=== PATIENT | female | born 1950 | race Caucasian/White ===

== ENCOUNTER → 2018-04-29 | Outpatient (CLI) | payer MEDICARE, OTHER ==
[~2018-04-29] MED LIST: CEFD300C3 PO; ENAL20TA PO; GLIP10TA13 PO; METF500T5 PO; NEBI5TAB8 PO
--- NOTE | 2018-04-29 11:56 | Diagnostic Imaging Report ---
Indication: Postmenopausal. No prior studies available for comparison. Bone mineral analysis of the lumbar spine and both hips was performed. Bone mineral density lumbar spine L2-L4 0.987 with T score -1.8. Bone mineral density left femoral neck 0.827 T score -1.5. Bone mineral density right femoral neck 0.842 T score -1.4. Impression: Osteopenia of the lumbar spine and bilateral femoral necks. Dictated by: Dictated on workstation # [id number]
--- NOTE | 2018-04-29 13:46 | Diagnostic Imaging Report ---
INDICATION: Routine screening. Comparison is made with prior mammograms from 04/24/2015 and 10/20/2011. 2-D and 3-D bilateral screening mammography was performed with CAD. The current study was also evaluated with a Computer Aided Detection (CAD) system. FINDINGS: Scattered fibroglandular densities are identified bilaterally. Nodular density in medial right breast remains stable. Benign calcifications are again noted bilaterally. No spiculated mass or malignant-appearing microcalcifications are seen. The axillae are unremarkable. IMPRESSION: No mammographic features suspicious for malignancy are identified. ACR BI-RADS Category 2: Benign findings. Result letter will be mailed to the patient. Note: At least 10% of breast cancer is not imaged by mammography. Dictated by: Dictated on workstation # [id number]
== END ==
LOC: RAD 10:05
PROVIDERS: ATTEND Nurse Practitioner
DX: Z12.31 Encounter for screening mammogram for malignant neoplasm of breast (principal); M85.88 Other specified disorders of bone density and structure, other site; Z78.0 Asymptomatic menopausal state
CPT/HCPCS: 77067; 77080

== ENCOUNTER → 2019-05-02 | Outpatient (CLI) | payer MEDICARE, OTHER ==
[~2019-05-02] MED LIST changes: +METF-397 PO; -METF500T5 PO
--- NOTE | 2019-05-02 14:14 | Diagnostic Imaging Report ---
INDICATION: Routine screening. COMPARISON: 04/29/2018 and 04/24/2015. TECHNIQUE: 2D and 3D bilateral screening mammography was performed with CAD. FINDINGS: Scattered fibroglandular densities are identified bilaterally. There are benign calcifications. The nodular density in the medial right breast is stable. There is a nodular density in the lateral right breast on the CC view at mid depth appearing more prominent than on the prior exams. Additional views are recommended. The axillae are unremarkable. IMPRESSION: There is a nodular density in the lateral right breast at mid depth. Additional views including spot compression and rolled CC views as well as mediolateral view are recommended. ACR BI-RADS Category 0: Incomplete. (Needs additional imaging evaluation). Result letter will be mailed to the patient. Note: At least 10% of breast cancer is not imaged by mammography. Dictated by: Dictated on workstation # [id number]
== END ==
LOC: RAD 10:37
PROVIDERS: ATTEND Nurse Practitioner
DX: Z12.31 Encounter for screening mammogram for malignant neoplasm of breast (principal)
CPT/HCPCS: 77067

== ENCOUNTER → 2019-05-11 | Outpatient (CLI) | payer MEDICARE, OTHER ==
--- NOTE | 2019-05-11 10:21 | Diagnostic Imaging Report ---
INDICATION: Abnormal screening mammogram. COMPARISON: 04/29/2018, 04/24/2015, and 10/20/2011. TECHNIQUE: Spot compression views, rolled views, and a true lateral view of the right breast were obtained. The current study was evaluated with a Computer Aided Detection (CAD) system. FINDINGS: The previously described density appears to be superimposed fibroglandular tissue. There is no discrete mass, spiculated lesion, or suspicious calcification identified. The skin, nipples, and axillae are unremarkable. IMPRESSION: Benign findings. ACR BI-RADS Category 2: Benign findings. Result letter will be mailed to the patient. Note: At least 10% of breast cancer is not imaged by mammography. Dictated by: Dictated on workstation # [id number]
== END ==
LOC: RAD 08:45
PROVIDERS: ATTEND Nurse Practitioner
DX: R92.2 Inconclusive mammogram (principal)

== ENCOUNTER → 2020-05-08 | Outpatient (CLI) | payer MEDICARE, OTHER ==
--- NOTE | 2020-05-08 14:43 | Diagnostic Imaging Report ---
INDICATION: Postmenopausal state. COMPARISON: April 29, 2018. FINDINGS: AP Spine L1-L4: [BMD (g/cm2): 1.047] [T-Score: -1.3] [Z-Score: -0.8] [BMD Previous: 0.987] [BMD % Change: 6.1] LT Hip Neck: [BMD (g/cm2): 0.815] [T-Score: -1.6] [Z-Score: -0.6] LT Hip Total: [BMD (g/cm2):0.911] [T-Score:-0.8] [Z-Score: -0.1] [BMD Previous: 0.919] [BMD % Change: -0.9] RT Hip Neck: [BMD (g/cm2):0.837] [T-Score:-1.4] [Z-Score:-0.5] RT Hip Total: [BMD (g/cm2):0.959] [T-score:-0.4] [Z-Score:0.3] [BMD Previous:0.957] [BMD % Change:0.2] *Indicates significant change from prior examination based on 95% confidence level. World Health Organization criteria for BMD interpretation classify patients as Normal (T-score at or above -1.0), Osteopenic (T-score between -1.0 and -2.5) or Osteoporotic (T-score at or below -2.5). LIMITATIONS AND MODIFICATION: None. FRACTURE RISK (FRAX SCORE): The ten year probability of (%): Major Osteoporotic Fracture: [8.3] Hip Fracture: [1.3] IMPRESSION: 1. Osteopenia (Low bone mass). 2. No significant change in bone mineral density since prior examination. 3. See below National Osteoporosis Foundation guidelines on when to potentially initiate pharmacologic therapy. Based on the National Osteoporosis Foundation Guidelines, pharmacologic treatment should be initiated in any of the following, unless clinical conditions suggest otherwise: * Any patient with prior fragility fracture of the hip or vertebrae. A spine fracture indicates 5X risk for subsequent spine fracture and 2X risk for subsequent hip fracture. * Osteoporosis (T-score <-2.5). * Postmenopausal women and men age 50 and older with low bone mass/osteopenia (T-score between -1.0 and -2.5) by DXA and 10-year major osteoporotic fracture greater than 20% or a 10-year probability of hip fracture greater than 3%. These fracture risks are supplied above in the FRAX score, if applicable. * Clinician judgement and/or patient preferences may indicate treatment for people with 10-year fracture probabilities above or below these levels. Dictated by: Dictated on workstation # [id number]
--- NOTE | 2020-05-08 17:00 | Diagnostic Imaging Report ---
INDICATION: Routine screening. COMPARISON: 05/02/2019 and 04/29/2018. TECHNIQUE: 2D and 3D bilateral screening mammography was performed with CAD. FINDINGS: Scattered fibroglandular densities are identified bilaterally. The parenchymal pattern is stable. There are scattered benign calcifications. No dominant mass or malignant appearing microcalcifications are seen. The axillae are unremarkable. IMPRESSION: No mammographic features suspicious for malignancy are identified. ACR BI-RADS Category 2: Benign findings. Result letter will be mailed to the patient. Note: At least 10% of breast cancer is not imaged by mammography. Dictated by: Dictated on workstation # [id number]
== END ==
LOC: RAD 12:59
PROVIDERS: ATTEND Nurse Practitioner
DX: Z12.31 Encounter for screening mammogram for malignant neoplasm of breast (principal); N95.9 Unspecified menopausal and perimenopausal disorder; M85.89 Other specified disorders of bone density and structure, multiple sites; Z78.0 Asymptomatic menopausal state
CPT/HCPCS: 77063; 77067; 77080

== ENCOUNTER 2020-05-26 14:33 | Emergency (ER) | payer OTHER, MEDICARE ==
[~2020-05-26] VITALS: Ht 167.6 cm; Wt 86.2 kg
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
[2020-05-26] MEDS ORDERED: dexAMETHasone 6 MG TAB (DECADRON) ONE (15:26)
[2020-05-26] MEDS ORDERED: RT-ALBUTEROL INHALER HFA (VENTOLIN HFA) 18 GM IH ONE (15:26)
[2020-05-26] MEDS ORDERED: LACTATED RINGERS 0 ML IV ONE (15:26)
[2020-05-26 15:50] VITALS: BP 147/70
== END 2020-05-26 15:50 | disposition home or self-care (01) ==
LOC: EDUNIT# 14:33 → ER 14:34
DX: S20.211A Contusion of right front wall of thorax, initial encounter (principal); S60.221A Contusion of right hand, initial encounter; S90.01XA Contusion of right ankle, initial encounter; S10.81XA Abrasion of other specified part of neck, initial encounter; S80.211A Abrasion, right knee, initial encounter; E11.9 Type 2 diabetes mellitus without complications; I10 Essential (primary) hypertension; Z87.891 Personal history of nicotine dependence; Z79.84 Long term (current) use of oral hypoglycemic drugs; Z88.0 Allergy status to penicillin; Z88.2 Allergy status to sulfonamides; V89.2XXA Person injured in unspecified motor-vehicle accident, traffic, initial encounter
CPT/HCPCS: 71101

== ENCOUNTER → 2022-06-03 | Outpatient (CLI) | payer MEDICARE, OTHER ==
[~2022-06-03] MED LIST changes: -ENAL20TA PO; +ENAL20TA16 PO
--- NOTE | 2022-06-03 12:45 | Diagnostic Imaging Report ---
INDICATION: Routine screening. COMPARISON: 05/08/2020 and 05/02/2019. TECHNIQUE: 2D and 3D bilateral screening mammography was performed with CAD. FINDINGS: Both breasts are heterogeneously dense, limiting the sensitivity of mammography. There are benign calcifications present. No mass or malignant-appearing microcalcifications are seen. The axillae are unremarkable. IMPRESSION: No mammographic features suspicious for malignancy are identified. ACR BI-RADS Category 2: Benign findings. Result letter will be mailed to the patient. Note: At least 10% of breast cancer is not imaged by mammography. Dictated by: Dictated on workstation # [id number]
--- NOTE | 2022-06-03 13:07 | Diagnostic Imaging Report ---
INDICATION: 71-year-old asymptomatic postmenopausal female COMPARISON: 05/08/2020 FINDINGS: AP Spine L1-L4: [BMD (g/cm2): 1.111] [T-Score: -0.7] [Z-Score: 0.0] [BMD Previous: 1.047] [BMD % Change: 6.1*] LT Hip Neck: [BMD (g/cm2): 0.819] [T-Score: -1.6] [Z-Score: -0.4] LT Hip Total: [BMD (g/cm2):0.906] [T-Score:-0.8] [Z-Score: 0.1] [BMD Previous: 0.911] [BMD % Change: -0.5] RT Hip Neck: [BMD (g/cm2):0.811] [T-Score:-1.6] [Z-Score:-0.4] RT Hip Total: [BMD (g/cm2):0.917] [T-score:-0.7] [Z-Score:0.2] [BMD Previous:0.959] [BMD % Change:-4.4] *Indicates significant change from prior examination based on 95% confidence level. World Health Organization criteria for BMD interpretation classify patients as Normal (T-score at or above -1.0), Osteopenic (T-score between -1.0 and -2.5) or Osteoporotic (T-score at or below -2.5). LIMITATIONS AND MODIFICATION: Increase in bone mineral density of the lumbar spine may be falsely elevated due to degenerative sclerotic changes. FRACTURE RISK (FRAX SCORE): The ten year probability of (%): Major Osteoporotic Fracture: [NA] Hip Fracture: [NA] IMPRESSION: 1. Normal bone mineral density. 2. No significant change in bone mineral density since prior examination. 3. See below National Osteoporosis Foundation guidelines on when to potentially initiate pharmacologic therapy. Based on the National Osteoporosis Foundation Guidelines, pharmacologic treatment should be initiated in any of the following, unless clinical conditions suggest otherwise: * Any patient with prior fragility fracture of the hip or vertebrae. A spine fracture indicates 5X risk for subsequent spine fracture and 2X risk for subsequent hip fracture. * Osteoporosis (T-score <-2.5). * Postmenopausal women and men age 50 and older with low bone mass/osteopenia (T-score between -1.0 and -2.5) by DXA and 10-year major osteoporotic fracture greater than 20% or a 10-year probability of hip fracture greater than 3%. These fracture risks are supplied above in the FRAX score, if applicable. * Clinician judgement and/or patient preferences may indicate treatment for people with 10-year fracture probabilities above or below these levels. Dictated by: Dictated on workstation # [id number]
== END ==
LOC: RAD 10:00
PROVIDERS: ATTEND Registered Nurse
DX: Z12.31 Encounter for screening mammogram for malignant neoplasm of breast (principal); Z78.0 Asymptomatic menopausal state
CPT/HCPCS: 77063; 77067; 77080

== ENCOUNTER 2023-01-12 18:34 | Emergency (ER) | payer MEDICARE, OTHER ==
[~2023-01-12] VITALS: Ht 165 cm; Wt 100.0 kg
[2023-01-12 19:08] VITALS: BP 158/74
--- NOTE | 2023-01-12 19:54 | ED Lower Extremity ---
General Chief Complaint: Laceration Stated Complaint: LEFT LEG LAC Nursing Triage Note: Pt presents with c/o laceration to outside of L leg. She states she was putting trash into a bin and something sharp in the trashbag cut her leg. Source: patient Exam Limitations: no limitations History of Present Illness Date Seen by Provider: January 12, 2023 Time Seen by Provider: 19:45 Initial Comments 72-year-old female presents to the ED with a laceration to the left lower leg. States that she was lifting a trash bag that was too heavy, S1 and a piece of glass in the trash bag cut her leg. She states her last tetanus was greater than 5 years ago. Past medical history includes diabetes and hypertension. Currently takes glipizide, metformin, and benazepril. Allergies and Home Medications Allergies Coded Allergies: nickel (Unverified Allergy, Mild, 02/25/09) Penicillins (Verified Allergy, Unknown, 01/01/16) Sulfa (Sulfonamide Antibiotics) (Verified Allergy, Unknown, 01/01/16) Uncoded Allergies: METAL (Allergy, Mild, 02/25/09) Patient Home Medication List Home Medication List Reviewed: Yes Cefdinir (Cefdinir) 300 Mg Capsule, 300 MG PO BID Prescribed by: LARA OCDY on 01/01/16 0404 Enalapril Maleate (Enalapril Maleate) 20 Mg Tablet, 20 MG PO DAILY, (Reported) Entered as Reported by: MOO STOUT on 01/01/16251 Glipizide (Glipizide) 10 Mg Tablet, 10 MG PO DAILY, (Reported) Entered as Reported by: MOO STOUT on 01/01/16251 Metformin HCl (Metformin HCl) 500 Mg Tablet, 500 MG PO BID, (Reported) Entered as Reported by: MOO STOUT on 01/01/16251 Nebivolol HCl (Bystolic) 5 Mg Tablet, 5 MG PO DAILY, (Reported) Entered as Reported by: MOO STOUT on 01/01/16251 Review of Systems Constitutional: no symptoms reported Skin: other (Laceration) Past Vcuuygc-Hnioli-Wxprqw Hx Seasonal Allergies Seasonal Allergies: No Past Medical History Surgeries: Yes (DENTAL) Eye Surgery Respiratory: No Cardiac: Yes Hypertension Neurological: No Genitourinary: Yes UTI-Chronic Gastrointestinal: Yes Hemorrhoids Musculoskeletal: Yes (SPINAL STENOSIS) Endocrine: Yes Diabetes, Non-Insulin dep Cataract Loss of Vision: Denies Hearing Impairment: Denies Cancer: No Psychosocial: No Integumentary: No Blood Disorders: No Family Medical History No Pertinent Family Hx Physical Exam Vital Signs Vital Signs - First Documented 01/12/23 19:08 Temp 36.7 Pulse 48 Resp 16 B/P (MAP) 158/74 (102) Capillary Refill : Less Than 3 Seconds Height, Weight, BMI Height: 5'6" Weight: 250lbs. oz. 113.463027ya; 36.00 BMI Method:Stated General Appearance: WD/WN, no apparent distress Neck: supple, normal inspection Cardiovascular: regular rate, rhythm Respiratory: lungs clear, normal breath sounds, no respiratory distress, no accessory muscle use Legs: left leg other (Laceration) Neurologic/Psychiatric: alert, normal mood/affect Skin: normal color, warm/dry Progress/Results/Core Measures Results/Orders My Orders Orders - BARBIE FREY CIVIL [employer]ORATORY TECHNICIAN Dipht,Pertuss(Acell),Tet Adult (Boostrix (01/12/23 20:30) Vital Signs/I&O 01/12/23 19:08 Temp 36.7 Pulse 48 Resp 16 B/P (MAP) 158/74 (102) Blood Pressure Mean: 102 Progress Progress Note : Time: 19:53 Progress Note Patient seen and evaluated, resting comfortably in recliner, no acute distress. Laceration will need repaired. 2036 laceration repaired, see procedure note. Tetanus updated. Discharge i nstructions and return precautions provided. Departure Impression Primary Impression: Laceration Disposition: 01 HOME, SELF-CARE Condition: Stable Departure-Patient Inst. Decision time for Depature: 20:38 Referrals: LINCOLN BRICEÑO MD (PCP/Family) Primary Care Physician Patient Instructions: Laceration Repair With Stitches (DC) Add. Discharge Instructions: Keep leg clean and dry, you may shower and let water wash over it, do not scrub too hard or soak your leg. Monitor for signs of infection including swelling, redness, discolored odorous drainage. Return for signs of infection, or any other new, concerning, or worsening symptoms. Return in 7 to 10 days to have the sutures removed, or see your primary care provider. All discharge instructions reviewed with patient and/or family. Voiced understanding. BARBIE FREY APRN January 12, 2023 19:54
[2023-01-12] MEDS ORDERED: TETANUS,DIPTH,PERTUSS P/F (BOOSTRIX) 0.5 ML VIAL IM ONE (20:30)
== END 2023-01-12 20:43 | disposition home or self-care (01) ==
LOC: EDUNIT# 18:34 → ER 18:36
DX: S81.812A Laceration without foreign body, left lower leg, initial encounter (principal); E11.9 Type 2 diabetes mellitus without complications; I10 Essential (primary) hypertension; Z79.84 Long term (current) use of oral hypoglycemic drugs; Z79.899 Other long term (current) drug therapy; Z23 Encounter for immunization; W25.XXXA Contact with sharp glass, initial encounter
CPT/HCPCS: 90715

== ENCOUNTER 2023-01-21 15:06 | Emergency (ER) | payer MEDICARE, OTHER ==
[~2023-01-21] VITALS: Ht 165 cm; Wt 99.0 kg
[~2023-01-21 15:06] MED LIST changes: +ENAL-70 PO; -ENAL20TA16 PO
[2023-01-21 15:20] VITALS: BP 151/82
--- NOTE | 2023-01-21 15:46 | ED General ---
General Chief Complaint: General Problems/Pain Stated Complaint: 10 STITCHES ON LT LEG TO BE REMOVED|WOUND RECHECK Nursing Triage Note: ARRIVED VIA AMB TO HAVE STICHES OUT OF RIGHT LEG. STATES TWO DAYS AFTER HER TETANUS SHE STARTED RUNNING A FEVER, CHILLS, AND BODY ACHES. AREA AROUND SUTURE SITE SLIGHTLY RED. Source of Information: Patient Exam Limitations: No Limitations History of Present Illness Date Seen by Provider: January 21, 2023 Time Seen by Provider: 15:30 Initial Comments 72-year-old female presents to the ED for suture removal. She had sutures placed on 01/12/2023. She also had a tetanus vaccine that day. She is concerned that she had a reaction to the tetanus shot. She reports that the next day she felt swollen lymph nodes in the axilla near the injection site, the day after that she started having chills and fever as well as headache. She reports she had 1 day of runny nose and cough, states that has improved. She reports she currently has a sinus headache and mild sore throat. She reports in general that all symptoms have improved. She states she took a home COVID test that was negative. Allergies and Home Medications Allergies Coded Allergies: nickel (Unverified Allergy, Mild, 02/25/09) Penicillins (Verified Allergy, Unknown, 01/01/16) Sulfa (Sulfonamide Antibiotics) (Verified Allergy, Unknown, 01/01/16) Uncoded Allergies: METAL (Allergy, Mild, 02/25/09) Patient Home Medication List Home Medication List Reviewed: Yes Cefdinir (Cefdinir) 300 Mg Capsule, 300 MG PO BID Prescribed by: LARA CODY on 01/01/16 0404 Enalapril Maleate (Enalapril Maleate) 20 Mg Tablet, 20 MG PO DAILY, (Reported) Entered as Reported by: MOO STOUT on 01/01/16 025 Glipizide (Glipizide) 10 Mg Tablet, 10 MG PO DAILY, (Reported) Entered as Reported by: MOO STOUT on 01/01/16 025 Metformin HCl (Metformin HCl) 500 Mg Tablet, 500 MG PO BID, (Reported) Entered as Reported by: MOO STOUT on 01/01/16 025 Nebivolol HCl (Bystolic) 5 Mg Tablet, 5 MG PO DAILY, (Reported) Entered as Reported by: MOO STOUT on 01/01/16 0252 Review of Systems Review of Systems Constitutional: see HPI Past Dgqgtqz-Mtmrry-Riroqo Hx Patient Social History Tobacco Use?: No Substance use?: No Alcohol Use?: No Alcohol Frequency: Rarely Seasonal Allergies Seasonal Allergies: No Past Medical History Surgeries: Yes (DENTAL) Eye Surgery Respiratory: No Cardiac: Yes Hypertension Neurological: No Genitourinary: Yes UTI-Chronic Gastrointestinal: Yes Hemorrhoids Musculoskeletal: Yes (SPINAL STENOSIS) Endocrine: Yes Diabetes, Non-Insulin dep Cataract Loss of Vision: Denies Hearing Impairment: Denies Cancer: No Psychosocial: No Integumentary: No Blood Disorders: No Family Medical History No Pertinent Family Hx Physical Exam Vital Signs Vital Signs - First Documented 01/21/23 15:20 Temp 36.9 Pulse 84 Resp 16 B/P (MAP) 151/82 (105) Pulse Ox 93 O2 Delivery Room Air Capillary Refill : Less Than 3 Seconds Height, Weight, BMI Height: 5'6" Weight: 250lbs. oz. 113.228544nv; 36.00 BMI Method:Stated General Appearance: No Apparent Distress, WD/WN HEENT: Pharynx Normal, TM Abnormal (L) (Dull), TM Abnormal (R) (Dull) Neck: Non Tender, Supple Respiratory: Lungs Clear, Normal Breath Sounds, No Accessory Muscle Use, No Respiratory Distress Extremity: Normal Inspection, Normal Range of Motion Neurologic/Psychiatric: Alert, Normal Mood/Affect Skin: Normal Color, Warm/Dry, Other (Intact sutures, mild erythema around laceration, no concern of infection) Procedures/Interventions Suture Size: 3-0 Progress/Results/Core Measures Suspected Sepsis SIRS Temperature: Pulse: 84 Respiratory Rate: 16 Blood Pressure 151 /82 Mean: 105 Results/Orders Vital Signs/I&O 01/21/23 15:20 Temp 36.9 Pulse 84 Resp 16 B/P (MAP) 151/82 (105) Pulse Ox 93 O2 Delivery Room Air Capillary Refill : Less Than 3 Seconds Blood Pressure Mean: 105 Progress Note : Progress Note Patient seen and evaluated, resting comfortably in bed, no acute distress. Symptoms could be related to adverse reaction to tetanus vaccine. Patient also may possibly have a sinus infection. Since this is day 9, and symptoms are improving, I will not treat with antibiotic at this time. Patient instructed to follow-up with primary care provider if symptoms continue or get worse past 10 days. Nursing staff will remove sutures. Mild erythema around laceration, no concern for infection. Discharge instructions and return precautions provided. Departure Impression Primary Impression: Encounter for evaluation of wound Additional Impression: Viral sinusitis Disposition: HOME, SELF-CARE Condition: Stable Departure-Patient Inst. Decision time for Depature: 15:52 Referrals: LINCOLN BRICEÑO MD (PCP/Family) Primary Care Physician Patient Instructions: Sinusitis, Adult (DC) Add. Discharge Instructions: Your symptoms could be related to the tetanus injection, or it could also be a viral sinus infection. If your symptoms continue past 10 days, or become worse, you may see your primary care provider to be started on antibiotic. At this time, since your symptoms are improving, you do not need an antibiotic. Return for any new, concerning, or worsening symptoms. All discharge instructions reviewed with patient and/or family. Voiced understanding. BARBIE FREY APRN January 21, 2023 15:46
== END 2023-01-21 16:02 | disposition home or self-care (01) ==
LOC: EDUNIT# 15:06 → ER 15:09
DX: S81.811D Laceration without foreign body, right lower leg, subsequent encounter (principal); J32.9 Chronic sinusitis, unspecified; B97.89 Other viral agents as the cause of diseases classified elsewhere; X58.XXXD Exposure to other specified factors, subsequent encounter
CPT/HCPCS: 99282

== ENCOUNTER 2023-04-13 09:53 | Emergency (ER) | payer MEDICARE, OTHER ==
[~2023-04-13] VITALS: Ht 165.1 cm; Wt 90.7 kg
--- NOTE | 2023-04-13 10:23 | ED Fall/Injury ---
General Chief Complaint: Back Problems Stated Complaint: LOWER BACK PAIN | FALL 1 WEEK AGO Nursing Triage Note: PT TO ROOM 07 [facility] W/C WITH C/O LEFT LOWER BACK AND LEFT HIP PAIN X1 WEEK. PT REPORTS TRIPPING AND FALLING LAST THURSDAY AND HAS HAD PAIN SINCE. PT REPORTS HITTING HER FACE DURING THE FALL. PT REPORTS TAKING IBUPROFEN [employer]IST. Source: patient Exam Limitations: no limitations (GABINO RODGERS MD) History of Present Illness Date Seen by Provider: Apr 13, 2023 Initial Comments No bowel or bladder dysfunction, LE weakness, or saddle paresthesias were described. She is not anticoagulated. Dr. Krystal Briceño is her PCP. She saw Dr. Gould in [place] for neurosurgical consultation many years ago. Remains ambulatory but walking is slow and difficult due to pain. (GABINO RODGERS MD) Time Seen by Provider: 10:05 Initial Comments This is a 72 year old female with a history of lumbar spinal stenosis who presents to the ED today with complaints of low back pain and left hip pain. Last Thursday, Patient states that her foot got caught on the edge of a sidewalk and fell face forward onto the ground. The patient states that she did hit her head, but did not have LOC. States that she was wearing glasses and those cut her nose. At the time of the fall, the patient did not seek medical care. Admits that most of her pain now is left sided low back and hip. Describes the pain as sharp and rates it as an 8-9 on the pain scale. States that she has only taken ibuprofen for the pain and the last dose was prior to arrival. Admits that it has been hard for her to walk because of the pain and she has to move very slow, which is not normal for her. Patient states that when she tries to take a deep breath the muscles in her low back tense up. The pain radiates from the left sided low back into the groin. Patient admits to a daily headache since her fall. Patient is not anticoagulated. Patient denies numbness or weakness in her legs, dizziness, or vision changes. (GOPI KLINE) Allergies and Home Medications Allergies Coded Allergies: nickel (Unverified Allergy, Mild, 02/25/09) Penicillins (Verified Allergy, Unknown, 01/01/16) Sulfa (Sulfonamide Antibiotics) (Verified Allergy, Unknown, 01/01/16) Uncoded Allergies: METAL (Allergy, Mild, 02/25/09) Patient Home Medication List Home Medication List Reviewed: Yes (GABINO RODGERS MD) Cefdinir (Cefdinir) 300 Mg Capsule, 300 MG PO BID Prescribed by: LARA CODY on 01/01/16 0404 Enalapril Maleate (Enalapril Maleate) 20 Mg Tablet, 20 MG PO DAILY, (Reported) Entered as Reported by: MOO STOUT on 01/01/16 025 Gabapentin (Neurontin) 300 Mg Capsule, 300 MG PO Q8H PRN for PAIN-BREAKTHROUGH Prescribed by: GABINO SCHULZ on 04/13/23 1250 Glipizide (Glipizide) 10 Mg Tablet, 10 MG PO DAILY, (Reported) Entered as Reported by: MOO STOUT on 01/01/16 025 Metformin HCl (Metformin HCl) 500 Mg Tablet, 500 MG PO BID, (Reported) Entered as Reported by: MOO STOUT on 01/01/16 0252 Nebivolol HCl (Bystolic) 5 Mg Tablet, 5 MG PO DAILY, (Reported) Entered as Reported by: MOO STOUT on 01/01/16 025 Tramadol HCl (Tramadol HCl) 50 Mg Tablet, 50 MG PO Q6H PRN for PAIN BREAKTROUGH Prescribed by: GABINO SCHULZ on 04/13/23 1252 Review of Systems Review of Systems Constitutional: no symptoms reported (GABINO RODGERS MD) Eyes: Denies Blurred Vision Genitourinary: no symptoms reported Musculoskeletal: see HPI Psychiatric/Neurological: See HPI (GOPI KLINE) Past Heryzln-Ybjmwu-Avibxp Hx Patient Social History Smoking Status: Former Smoker Smokeless Tobacco Frequency: Never a User Use of E-Cig and/or Vaping dev: No Use of E-Cig and/or Vaping Zaid: Never a User Substance use?: No Alcohol Use?: No Pt feels they are or have been: No (GABINO RODGERS MD) Tobacco Use?: No Tobacco type used: Cigarettes Smoking Status: Former Smoker Use of E-Cig and/or Vaping dev: No Substance use?: No (GOPI KLINE) Seasonal Allergies Seasonal Allergies: No (GABINO RODGERS MD) Past Medical History Surgeries: Yes (DENTAL) Eye Surgery Respiratory: No Cardiac: Yes Hypertension Neurological: No Genitourinary: Yes UTI-Chronic Gastrointestinal: Yes Hemorrhoids Musculoskeletal: Yes (SPINAL STENOSIS) Endocrine: Yes Diabetes, Non-Insulin dep Cataract Loss of Vision: Denies Hearing Impairment: Denies Cancer: No Psychosocial: No Integumentary: No Blood Disorders: No (GABINO RODGERS MD) Surgeries: Yes Eye Surgery (cataract) Respiratory: No Hypertension Neurological: Yes (spinal stenosis) Diabetes, Non-Insulin dep (GOPI KLINE) Family Medical History No Pertinent Family Hx (GABINO RODGERS MD) Physical Exam Vital Signs Vital Signs - First Documented 04/13/23 10:00 Temp 36.4 Pulse 86 Resp 19 B/P (MAP) 194/124 (147) O2 Delivery Room Air (GOPI KLINE) Vital Signs Capillary Refill : Less Than 3 Seconds (GABINO RODGERS MD) Height, Weight, BMI Height: 5'6" Weight: 250lbs. oz. 113.983165jh; 33.00 BMI Method:Stated General Appearance: WD/WN, moderate distress HEENT: PERRL/EOMI, normal ENT inspection Neck: normal inspection, tender midline Cardiovascular: regular rate, rhythm, no edema, no murmur Respiratory: lungs clear, normal breath sounds, no respiratory distress Gastrointestinal: non tender, soft; No distended Back: normal inspection, other (TTP left of lumbar spine and over lumbar spine) Extremities: non-tender, normal inspection Neurologic/Psychiatric: no motor/sensory deficits, alert, normal mood/affect, oriented x 3 Skin: normal color, warm/dry (GABINO RODGERS MD) Fran Coma Score Best Eye Response: (4) Open Spontaneously Best Verbal Response: (5) Oriented Best Motor Response: (6) Obeys Commands Fran Total: 15 (GABINO RODGERS MD) Procedures/Interventions Suture Size: 3-0 (GABINO RODGERS MD) Progress/Results/Core Measures Results/Orders Medications Given in ED Current Medications Medications Dose Ordered Sig/Taty Route Start Time Stop Time Status Last Admin Dose Admin Fentanyl Citrate 75 mcg ONCE ONCE IVP 7/31/23 10:30 04/13/23 10:31 DC 04/13/23 10:25 75 MCG (GOPI KLINE) Vital Signs/I&O 04/13/23 10:00 Temp 36.4 Pulse 86 Resp 19 B/P (MAP) 194/124 (147) O2 Delivery Room Air (GOPI KLINE) Blood Pressure Mean: 147 Progress Progress Note : Progress Note Interview and exam was initiated at 1005. I introduced PA student who conducted much of the interview. Patient was interviewed and examined by me personally as well. Patient experienced improving headache since fall and has nausea today. For this reason head imaging was included in the work-up. CT of the lumbar spine was also included in work-up. Patient described pain radiating from the low back around to the left suprapubic region. CT pelvis was included to evaluate for sacral and pelvic injuries. No acute injuries were identified on my view and interpretation of the imaging. Radiologist's reports noted no acute injures. Significant chronic disease processes were noted on the lumbar CT. Follow-up with PCP and spine surgeon was recommended. Pain was treated with Fentanyl and Morphine. Prescriptions were provided. Return precautions reviewed. (GABINO RODGERS MD) Diagnostic Imaging Diagonstic Imaging: CT Plain Films/CT/US/NM/MRI: c-spine, head Comments NAME: [facility] REC#: [id number] PT STATUS: REG ER : 1950 PHYSICIAN: GABINO RODGERS MD ADMIT DATE: 04/13/23/ER Signed Date of Exam:04/13/23 CT HEAD/CERVICAL SPINE WO EXAMINATION: CT head and CT cervical spine without contrast. TECHNIQUE: Multiple contiguous axial images were obtained through the brain and cervical spine without the use of intravenous contrast. Sagittal and coronal reformations through the cervical spine were then performed. All CT scans use one or more of the following dose optimizing techniques: automated exposure control, MA and/or KvP adjustment based on patient size and exam type or iterative reconstruction. HISTORY: Head and neck pain after fall. COMPARISON: None available. FINDINGS: HEAD: The ventricles and sulci are normal. No abnormal attenuation of brain parenchyma is present. No acute intracranial hemorrhage or abnormal extra-axial fluid collections are present. Calcification of the intracranial ICAs. No hyperdense vessel. The calvarium is intact. The mastoid air cells are clear. The visualized paranasal sinuses are clear. There are surgical changes from cataract repair. C-SPINE: Vertebral body height and alignment are preserved. No acute fracture, dislocation, or destructive osseous process. Multilevel facet hypertrophy without perched facets. There is multilevel cervical spondylosis. The paraspinous soft tissues are normal. The visualized thyroid gland is normal. The visualized lung apices are normal. IMPRESSION: 1. No acute intracranial abnormality. 2. Degenerative changes of the cervical spine without acute osseous abnormality. Dictated by: Dictated on workstation # [id number] Dict: 04/13/23 1107 Trans: 04/13/23 1113 [id number] Interpreted by: EDNA BAEZA DO Electronically signed by: EDNA BAEZA DO 04/13/23 1113 Diagonstic Imaging: CT Plain Films/CT/US/NM/MRI: pelvis Comments NAME: [facility] REC#: [id number] PT STATUS: REG ER : 1950 PHYSICIAN: GABINO RODGERS MD ADMIT DATE: 04/13/23/ER Draft Date of Exam:04/13/23 CT PELVIS WO CLINICAL INDICATION: Patient is status post fall x1 week. Patient has pain in the left hip area. EXAM: Axial CT scan of the pelvis performed without IV contrast. Sagittal and coronal reformatted images are created. Auto Exposure Controls were utilized during the CT exam to meet ALARA standards for radiation dose reduction. COMPARISON: None. FINDINGS: There is no acute fracture or dislocation. There is mild enthesopathy involving greater trochanter regions anteriorly. There are small spurs and sclerosis involving the bilateral sacroiliac joints. There is lower lumbar spine facet arthropathy and an degenerative spurs. There are diffuse disk bulges seen at the L4-L5 and L5-S1 levels. There is severe bilateral L4-L5 neural foramen narrowing in severe left L5-S1 neural foramen narrowing. There is severe central canal stenosis at the L4-L5 level. Limited visualization intrapelvic and extrapelvic soft tissue structures are unremarkable. IMPRESSION: Is no acute fracture or dislocation. Dictated on workstation # [id number] Dict: 04/13/23 1128 Trans: 04/13/23 1139 [facility] [id number] Interpreted by: JOSIANE GUZMAN MD Diagonstic Imaging: CT Plain Films/CT/US/NM/MRI: other (lumbar spine) Comments [place], [place] NAME: [facility] REC#: [id number] PT STATUS: DEP ER : 1950 PHYSICIAN: GABINO RODGERS MD ADMIT DATE: 04/13/23/ER Signed Date of Exam:04/13/23 CT LUMBAR SPINE WO PROCEDURE: CT lumbar spine without contrast. TECHNIQUE: Multiple contiguous axial images were obtained through the lumbar spine without the use of intravenous contrast. Sagittal and coronal reformations were then performed. Auto Exposure Controls were utilized during the CT exam to meet ALARA standards for radiation dose reduction. INDICATION: 72-year-old female, one week post fall with lower back pain. CORRELATION STUDY: MRI 03/02/2015 FINDINGS: Lumbar spinal alignment is with mild leftward curvature, otherwise normal in alignment. There is no acute appearing compression fracture. Various degrees of moderate marked disc space narrowing are present. Most pronounced at L4-L5, L3-L4 and L1-L2 and T12-L1 levels with vacuum disc phenomena. Posterior elements intact and normal alignment. No spondylolysis. Various degrees of spinal canal and foraminal narrowing are present. There is moderate marked spinal canal stenosis at subsequently all levels of the lumbar spine. Most severe at L4-L5, L3-L4 and L2-L3 levels owing to a predominantly ligamentum flavum and facet hypertrophy. Foraminal narrowing most severe on the left at L5-S1, L4-L5, L3-L4, to a lesser degree L2-L3 level. On the right, severe at L4-L5, to a lesser degree L3-L4, L5-S1, L2-L3 levels owing to disc osteophyte formation. Paraspinal soft tissues unremarkable with mild wall calcification of the abdominal aorta. IMPRESSION: 1. Negative for acute fracture lumbar spine. 2. Rather marked spinal canal and foraminal narrowing through large portion of the lumbar spine. Spinal canal stenosis largely attributed to ligamentum and facet hypertrophy with foraminal narrowing owing to disc osteophyte formation. Dictated by: Dictated on workstation # [id number] Dict: 04/13/23 1113 Trans: 04/13/23 1323 [facility] [id number] Interpreted by: ANGEL SCHWARTZ DO Electronically signed by: ANGEL SCHWARTZ DO 04/13/23 1323 (GABINO RODGERS MD) Departure Impression Primary Impression: Lumbar spinal stenosis Qualified Codes: M48.061 - Spinal stenosis, lumbar region without neurogenic claudication Additional Impressions: Fall on same level Qualified Codes: W18.30XA - Fall on same level, unspecified, initial encounter Minor head injury Qualified Codes: S09.90XA - Unspecified injury of head, initial encounter Disposition: 01 HOME, SELF-CARE Condition: Improved Departure-Patient Inst. Decision time for Depature: 12:45 (GABINO RODGERS MD) Referrals: LINCOLN BRICEÑO MD (PCP/Family) Primary Care Physician Patient Instructions: Spinal stenosis, Spinal Stenosis Strengthening Exercises, Low Back Pain (DC) Add. Discharge Instructions: No broken bones were identified on your scans today. However, you do have significant spinal stenosis and degenerative disease in your lower back which is likely contributing significantly to the pain you are experiencing today. For primary pain control you may use bkiv-asl-zishxaw medications including Tylenol (acetaminophen) up to 1000 mg every 6 hours as needed and/or ibuprofen up to 400 mg every 6 hours as needed. Diabetic patients should use ibuprofen for short-term pain control and should not use ibuprofen chronically for prolonged period of time due to risk for kidney damage. For breakthrough pain you may use Ultram (tramadol) and/or Neurontin (gabapentin). Use each as prescribed. If using combination, the sedative adverse effects may be amplified, so use with caution if taken in close proximity to each other. Additionally, Ultram may cause constipation, so you may wish to take a stool softener while using it. Follow-up with your primary care provider soon as possible to discuss further management and work-up of your pain and spinal stenosis. Return to the emergency room if you have worsening symptoms, especially if you develop true weakness in your legs, bowel or bladder dysfunction, escalating pain not responsive to medications, or numbness in the groin. These symptoms could be caused by critical and compression of your spinal cord or nerves exiting the spine and may require emergent attention. If the symptoms occur, it would be best to present to a facility with 24-hour MRI capability such as the [facility]. All discharge instructions reviewed with patient and/or family. Voiced understanding. Scripts Tramadol HCl (Tramadol HCl) 50 Mg Tablet 50 MG PO Q6H PRN for PAIN BREAKTROUGH, #20 TAB Prov: GABINO RODGERS MD 04/13/23 Gabapentin (Neurontin) 300 Mg Capsule 300 MG PO Q8H PRN for PAIN-BREAKTHROUGH, #15 CAP Prov: GABINO RODGERS MD 04/13/23 Copy Copies To 1: LINCOLN BRICEÑO MD, JOSHUA T MD Apr 13, 2023 10:23 GOPI KLINE Apr 13, 2023 10:30
[2023-04-13] MEDS ORDERED: fentaNYL INJ 100 MCG/2 ML AMP IVP ONE (10:30)
--- NOTE | 2023-04-13 11:11 | Diagnostic Imaging Report ---
EXAMINATION: CT head and CT cervical spine without contrast. TECHNIQUE: Multiple contiguous axial images were obtained through the brain and cervical spine without the use of intravenous contrast. Sagittal and coronal reformations through the cervical spine were then performed. All CT scans use one or more of the following dose optimizing techniques: automated exposure control, MA and/or KvP adjustment based on patient size and exam type or iterative reconstruction. HISTORY: Head and neck pain after fall. COMPARISON: None available. FINDINGS: HEAD: The ventricles and sulci are normal. No abnormal attenuation of brain parenchyma is present. No acute intracranial hemorrhage or abnormal extra-axial fluid collections are present. Calcification of the intracranial ICAs. No hyperdense vessel. The calvarium is intact. The mastoid air cells are clear. The visualized paranasal sinuses are clear. There are surgical changes from cataract repair. C-SPINE: Vertebral body height and alignment are preserved. No acute fracture, dislocation, or destructive osseous process. Multilevel facet hypertrophy without perched facets. There is multilevel cervical spondylosis. The paraspinous soft tissues are normal. The visualized thyroid gland is normal. The visualized lung apices are normal. IMPRESSION: 1. No acute intracranial abnormality. 2. Degenerative changes of the cervical spine without acute osseous abnormality. Dictated by: Dictated on workstation # [id number]
--- NOTE | 2023-04-13 11:39 | Diagnostic Imaging Report ---
CLINICAL INDICATION: Patient is status post fall x1 week. Patient has pain in the left hip area. EXAM: Axial CT scan of the pelvis performed without IV contrast. Sagittal and coronal reformatted images are created. Auto Exposure Controls were utilized during the CT exam to meet ALARA standards for radiation dose reduction. COMPARISON: None. FINDINGS: There is no acute fracture or dislocation. There is mild enthesopathy involving greater trochanter regions anteriorly. There are small spurs and sclerosis involving the bilateral sacroiliac joints. There is lower lumbar spine facet arthropathy and an degenerative spurs. There are diffuse disk bulges seen at the L4-L5 and L5-S1 levels. There is severe bilateral L4-L5 neural foramen narrowing in severe left L5-S1 neural foramen narrowing. There is severe central canal stenosis at the L4-L5 level. Limited visualization intrapelvic and extrapelvic soft tissue structures are unremarkable. IMPRESSION: Is no acute fracture or dislocation. Dictated by: Dictated on workstation # [id number]
--- NOTE | 2023-04-13 12:02 | Diagnostic Imaging Report ---
PROCEDURE: CT lumbar spine without contrast. TECHNIQUE: Multiple contiguous axial images were obtained through the lumbar spine without the use of intravenous contrast. Sagittal and coronal reformations were then performed. Auto Exposure Controls were utilized during the CT exam to meet ALARA standards for radiation dose reduction. INDICATION: 72-year-old female, one week post fall with lower back pain. CORRELATION STUDY: MRI 03/02/2015 FINDINGS: Lumbar spinal alignment is with mild leftward curvature, otherwise normal in alignment. There is no acute appearing compression fracture. Various degrees of moderate marked disc space narrowing are present. Most pronounced at L4-L5, L3-L4 and L1-L2 and T12-L1 levels with vacuum disc phenomena. Posterior elements intact and normal alignment. No spondylolysis. Various degrees of spinal canal and foraminal narrowing are present. There is moderate marked spinal canal stenosis at subsequently all levels of the lumbar spine. Most severe at L4-L5, L3-L4 and L2-L3 levels owing to a predominantly ligamentum flavum and facet hypertrophy. Foraminal narrowing most severe on the left at L5-S1, L4-L5, L3-L4, to a lesser degree L2-L3 level. On the right, severe at L4-L5, to a lesser degree L3-L4, L5-S1, L2-L3 levels owing to disc osteophyte formation. Paraspinal soft tissues unremarkable with mild wall calcification of the abdominal aorta. IMPRESSION: 1. Negative for acute fracture lumbar spine. 2. Rather marked spinal canal and foraminal narrowing through large portion of the lumbar spine. Spinal canal stenosis largely attributed to ligamentum and facet hypertrophy with foraminal narrowing owing to disc osteophyte formation. Dictated by: Dictated on workstation # [id number]
[2023-04-13] MEDS ORDERED: morphine INJ 4 MG/ML 1 ML (VIAL/SYRINGE) IVP ONE (12:45)
[2023-04-13] MEDS ORDERED: GABA300C PO (12:50)
[2023-04-13] MEDS ORDERED: TRM50T PO (12:50)
[2023-04-13 13:00] VITALS: BP 147/85
== END 2023-04-13 13:00 | disposition home or self-care (01) ==
LOC: EDUNIT# 09:53 → ER 09:55
DX: M48.061 Spinal stenosis, lumbar region without neurogenic claudication (principal); Z87.891 Personal history of nicotine dependence; W01.10XA Fall on same level from slipping, tripping and stumbling with subsequent striking against unspecified object, initial encounter; Y92.480 Sidewalk as the place of occurrence of the external cause
CPT/HCPCS: 70450; 72125; 72131; 72192; 99281

== ENCOUNTER 2023-07-30 01:53 | Observation (INO) | payer MEDICARE, OTHER ==
[~2023-07-30] VITALS: Ht 167.7 cm; Wt 115.2 kg
[2023-07-30] VITALS (7 sets, daily range): BP systolic 165–206; BP diastolic 78–104
[~2023-07-30 01:53] MED LIST changes: +GABA300C PO; +NEBI5TAB2 PO; -NEBI5TAB8 PO; +TRM50T PO
[2023-07-30] MEDS ORDERED: fentaNYL INJECTION 100 MCG/2 ML VIAL IVP ONE (02:30)
[2023-07-30] MEDS ORDERED: ONDANSETRON INJECTION 4 MG/2 ML (SDV) IVP ONE (02:30)
--- NOTE | 2023-07-30 02:37 | ED Abdominal Pain ---
General Chief Complaint: Abdominal/GI Problems Stated Complaint: UPPER ABD PX Nursing Triage Note: Pt presents with c/o epigastric abdominal cramping that comes in waves. She reports pain started at approx 2000 on 07/29/23. She's recently started semaglutide on 07/15. Denies vomiting Source of Information: Patient Exam Limitations: No Limitations History of Present Illness Date Seen by Provider: Jul 30, 2023 Time Seen by Provider: 02:14 Initial Comments This is a 72-year-old woman presents to the emergency room with complaints of epigastric pain and nausea without vomiting that started at around 2000 last night. She reports having recent mild constipation but continues to have bowel movements daily. She recently started Rybelsus (semaglutide) on July 15. She denies any fever. She describes her pain as a wave of intense pain that starts in the epigastric or lower chest region and moves down her abdomen to the pelvis. Allergies and Home Medications Allergies Coded Allergies: nickel (Unverified Allergy, Mild, 02/25/09) Penicillins (Verified Allergy, Unknown, 01/01/16) Sulfa (Sulfonamide Antibiotics) (Verified Allergy, Unknown, 01/01/16) Uncoded Allergies: METAL (Allergy, Mild, 02/25/09) Patient Home Medication List Home Medication List Reviewed: Yes Cefdinir (Cefdinir) 300 Mg Capsule, 300 MG PO BID Prescribed by: LARA CODY on 01/01/16 0404 Enalapril Maleate (Enalapril Maleate) 20 Mg Tablet, 20 MG PO DAILY, (Reported) Entered as Reported by: MOO STOUT on 01/01/16 025 Gabapentin (Neurontin) 300 Mg Capsule, 300 MG PO Q8H PRN for PAIN-BREAKTHROUGH Prescribed by: GABINO SCHULZ on 04/13/23 1250 Glipizide (Glipizide) 10 Mg Tablet, 10 MG PO DAILY, (Reported) Entered as Reported by: MOO STOUT on 01/01/16 025 Metformin HCl (Metformin HCl) 500 Mg Tablet, 500 MG PO BID, (Reported) Entered as Reported by: MOO STOUT on 01/01/16 025 Nebivolol HCl (Bystolic) 5 Mg Tablet, 5 MG PO DAILY, (Reported) Entered as Reported by: MOO STOUT on 01/01/16 0252 Tramadol HCl (Tramadol HCl) 50 Mg Tablet, 50 MG PO Q6H PRN for PAIN BREAKTROUGH Prescribed by: GABINO SCHULZ on 04/13/23 1252 Review of Systems Review of Systems Constitutional: no symptoms reported EENTM: No Symptoms Reported Respiratory: No Symptoms Reported Cardiovascular: No Symptoms Reported Gastrointestinal: See HPI Genitourinary: No Symptoms Reported Musculoskeletal: no symptoms reported Skin: no symptoms reported Psychiatric/Neurological: No Symptoms Reported Endocrine: No Symptoms Reported Hematologic/Lymphatic: No Symptoms Reported Past Hgxijyl-Ihhmnd-Srjpoo Hx Patient Social History Tobacco Use?: No Use of E-Cig and/or Vaping dev: No Substance use?: No Alcohol Use?: No Seasonal Allergies Seasonal Allergies: No Past Medical History Surgeries: Yes (Dental) Eye Surgery Respiratory: No Cardiac: Yes Hypertension Neurological: Yes (spinal stenosis) Genitourinary: Yes UTI-Chronic Gastrointestinal: Yes Hemorrhoids Musculoskeletal: Yes (SPINAL STENOSIS) Chronic Back Pain Endocrine: Yes Diabetes, Non-Insulin dep Cataract Loss of Vision: Denies Hearing Impairment: Denies Cancer: No Psychosocial: No Integumentary: No Blood Disorders: No Family Medical History No Pertinent Family Hx Physical Exam Vital Signs Vital Signs - First Documented 07/30/23 02:13 Temp 36.4 Pulse 89 Resp 16 B/P (MAP) 187/113 (137) Capillary Refill : Less Than 3 Seconds Height/Weight/BMI Height: 5'6" Weight: 250lbs. oz. [id number]; 35.00 BMI Method:Stated General Appearance: WD/WN, mild distress, obese HEENT: normal ENT inspection Neck: normal inspection Respiratory: lungs clear, normal breath sounds, no respiratory distress Cardiovascular: regular rate, rhythm, no edema, no murmur Gastrointestinal: normal bowel sounds, soft; No distended; tenderness (Minimal central tenderness) Extremities: swelling (Mild bilateral lower extremity edema) Neurologic/Psychiatric: no motor/sensory deficits, alert, normal mood/affect, oriented x 3 Skin: normal color, warm/dry Exam Comments Body habitus limits exam to some extent. Procedures/Interventions Suture Size: 3-0 Progress/Results/Core Measures Results/Orders Lab Results Laboratory Tests Test 07/30/23 02:44 07/30/23 04:00 Range/Units White Blood Count 13.0 H 4.3-11.0 10^3/uL Red Blood Count 4.77 3.80-5.11 10^6/uL Hemoglobin 13.8 11.5-16.0 g/dL Hematocrit 42 35-52 % Mean Corpuscular Volume 87 80-99 fL Mean Corpuscular Hemoglobin 29 25-34 pg Mean Corpuscular Hemoglobin Concent 33 32-36 g/dL Red Cell Distribution Width 12.7 10.0-14.5 % Platelet Count 232 130-400 10^3/uL Mean Platelet Volume 10.5 9.0-12.2 fL Immature Granulocyte % (Auto) 0 % Neutrophils (%) (Auto) 64 42-75 % Lymphocytes (%) (Auto) 26 12-44 % Monocytes (%) (Auto) 7 0-12 % Eosinophils (%) (Auto) 1 0-10 % Basophils (%) (Auto) 1 0-10 % Neutrophils # (Auto) 8.4 H 1.8-7.8 10^3/uL Lymphocytes # (Auto) 3.4 1.0-4.0 10^3/uL Monocytes # (Auto) 0.9 0.0-1.0 10^3/uL Eosinophils # (Auto) 0.2 0.0-0.3 10^3/uL Basophils # (Auto) 0.1 0.0-0.1 10^3/uL Immature Granulocyte # (Auto) 0.1 0.0-0.1 10^3/uL Sodium Level 137 135-145 MMOL/L Potassium Level 3.9 3.6-5.0 MMOL/L Chloride Level 104 98-107 MMOL/L Carbon Dioxide Level 22 21-32 MMOL/L Anion Gap 11 5-14 MMOL/L Blood Urea Nitrogen 21 H 7-18 MG/DL Creatinine 0.86 0.60-1.30 MG/DL Estimat Glomerular Filtration Rate 71 BUN/Creatinine Ratio 24 Glucose Level 217 H 70-105 MG/DL Calcium Level 10.1 8.5-10.1 MG/DL Corrected Calcium 10.3 H 8.5-10.1 MG/DL Total Bilirubin 0.5 0.1-1.0 MG/DL Aspartate Amino Transf (AST/SGOT) 13 5-34 U/L Alanine Aminotransferase (ALT/SGPT) 15 0-55 U/L Alkaline Phosphatase 96 40-136 U/L C-Reactive Protein High Sensitivity 1.19 H 0.00-0.50 MG/DL Total Protein 7.1 6.4-8.2 GM/DL Albumin 3.8 3.2-4.5 GM/DL Lipase 19 8-78 U/L Urine Color YELLOW Urine Clarity CLEAR Urine pH 5.0 5-9 Urine Specific [place] 1.020 1.016-1.022 Urine Protein NEGATIVE NEGATIVE Urine Glucose (UA) NEGATIVE NEGATIVE Urine Ketones NEGATIVE NEGATIVE Urine Nitrite NEGATIVE NEGATIVE Urine Bilirubin NEGATIVE NEGATIVE Urine Urobilinogen 0.2 < = 1.0 MG/DL Urine Leukocyte Esterase NEGATIVE NEGATIVE Urine RBC (Auto) TRACE H NEGATIVE Urine RBC RARE /HPF Urine WBC NONE /HPF Urine Squamous Epithelial Cells 0-2 /HPF Urine Crystals NONE /LPF Urine Bacteria TRACE /HPF Urine Casts NONE /LPF Urine Mucus NEGATIVE /LPF Urine Culture Indicated NO My Orders Orders - GABINO RODGERS MD Fentanyl Injection (Fentanyl Injection (07/30/23 02:30) Ondansetron Injection (Ondansetron Inj (07/30/23 02:30) Cbc And Automated Diff (07/30/23 02:23) Comprehensive Metabolic Panel (07/30/23 02:23) Hs C Reactive Protein (07/30/23 02:23) Lipase (07/30/23 02:23) Ua Culture If Indicated (07/30/23 02:23) Ed Iv/Invasive Line Start (07/30/23 02:23) Ct Angio Chst/Abd/Pelv W (07/30/23 03:23) Morphine Injection (Morphine Injection (07/30/23 03:45) Iohexol Injection (Omnipaque 350 Mg/Ml 1 (07/30/23 04:15) Received Contrast (Hold Metformin- Contr (07/30/23 04:15) Ns (Ivpb) 100 Ml (Sodium Chloride 0.9% 1 (07/30/23 04:15) Morphine Injection (Morphine Injection (07/30/23 05:04) Hyoscyamine Tablet (Hyoscyamine Tablet) (07/30/23 05:45) Enoxaparin Injection (Enoxaparin Injecti (07/30/23 05:45) Medications Given in ED Current Medications Medications Dose Ordered Sig/Taty Route Start Time Stop Time Status Last Admin Dose Admin Enoxaparin Sodium 100 mg ONCE ONCE SC 07/30/23 05:45 07/30/23 05:46 DC 07/30/23 05:42 100 MG Fentanyl Citrate 50 mcg ONCE ONCE IVP 07/30/23 02:30 07/30/23 02:31 DC 07/30/23 02:41 50 MCG Hyoscyamine Sulfate 0.25 mg ONCE ONCE SL 07/30/23 05:45 07/30/23 05:46 DC 07/30/23 05:39 0.25 MG Iohexol 100 ml ONCE ONCE IV 07/30/23 04:15 07/30/23 04:16 DC 07/30/23 04:03 82 ML Morphine Sulfate 4 mg ONCE ONCE IVP 07/30/23 03:45 07/30/23 03:47 DC 07/30/23 03:37 4 MG Ondansetron HCl 4 mg ONCE ONCE IVP 07/30/23 02:30 07/30/23 02:31 DC 07/30/23 02:41 4 MG Sodium Chloride 100 ml ONCE ONCE IV 07/30/23 04:15 07/30/23 04:16 DC 07/30/23 04:03 70 ML Vital Signs/I&O 07/30/23 02:13 Temp 36.4 Pulse 89 Resp 16 B/P (MAP) 187/113 (137) Blood Pressure Mean: 137 Progress Progress Note : Time: 06:03 Progress Note Patient was interviewed and examined. She was initially treated with fentanyl and Zofran. Pain quickly rebounded and she was treated with morphine x2 for her persistent pain. Labs were reviewed and interpreted by me. WBC count was 13. CBC was otherwise unremarkable. CMP was notable only for slight elevation in BUN of 21 and hyperglycemia with glucose of 217. Lipase was normal. CRP was slightly elevated at 1.19 which was not clinically significant. After review of labs, CT was ordered including angiogram of chest, abdomen, and pelvis. Due to pain disproportionate to tenderness, angiogram was pursued. CT was discussed with the [facility] radiologist, reviewed by me, and reviewed through report. There were pulmonary emboli noted in the right lung. There was also mesenteric edema and fluid-filled bowel consistent with enteritis and or low-grade bowel obstruction. Case was discussed with Dr. Meraz, general surgeon on-call. He recommended admission with symptomatic care and clear liquid diet. Case was also discussed with Dr. Streeter, admitting hospitalist. He accepts admission. I have written bridging orders on his behalf. I discussed CODE STATUS with the patient, and she elects a full code order. Diagnostic Imaging Diagonstic Imaging: CT Plain Films/CT/US/NM/MRI: chest, abdomen, c-spine Comments CT angiogram chest, abdomen and pelvis, discussed with radiologist, and reviewed by me. Findings are consistent with pulmonary embolus in the right lung and enteritis and/or low-grade bowel obstruction. Departure Communication (Admissions) Time/Spoke to Admitting Phy: 05:34 Dr. Streeter Time/Spoke to Consulting Phy: 05:30 Dr. Meraz Impression Primary Impression: Pulmonary embolism Qualified Codes: I26.99 - Other pulmonary embolism without acute cor pulmonale Additional Impressions: Small bowel obstruction Enteritis Disposition: ADMITTED INPATIENT Condition: Stable Admissions Decision to Admit Reason: Admit from ER (General) Decision to Admit/Date: Jul 30, 2023 Time/Decision to Admit Time: 05:30 Departure-Patient Inst. Referrals: LINCOLN BRICEÑO MD (PCP/Family) Primary Care Physician GABINO RODGERS MD Jul 30, 2023 02:37
[2023-07-30 02:50] LABS: BASOPHILS # (AUTO) 0.1 10^3/uL (0.0-0.1); BASOPHILS % (AUTO) 1 % (0-10); EOSINOPHILS # (AUTO) 0.2 10^3/uL (0.0-0.3); EOSINOPHILS % (AUTO) 1 % (0-10); HEMATOCRIT 42 % (35-52); HEMOGLOBIN 13.8 g/dL (11.5-16.0); LYMPHOCYTES # (AUTO) 3.4 10^3/uL (1.0-4.0); LYMPHOCYTES % (AUTO) 26 % (12-44); MEAN CORPUSCULAR HEMOGLOBIN 29 pg (25-34); MEAN CORPUSCULAR HGB CONC 33 g/dL (32-36); MEAN CORPUSCULAR VOLUME 87 fL (80-99); MEAN PLATELET VOLUME 10.5 fL (9.0-12.2); MONOCYTES # (AUTO) 0.9 10^3/uL (0.0-1.0); MONOCYTES % (AUTO) 7 % (0-12); NEUTROPHILS # (AUTO) 8.4 10^3/uL (1.8-7.8); NEUTROPHILS % (AUTO) 64 % (42-75); PLATELET COUNT 232 10^3/uL (130-400)
[2023-07-30 02:56] LABS: ALBUMIN 3.8 GM/DL (3.2-4.5); POTASSIUM 3.9 MMOL/L (3.6-5.0)
[2023-07-30 02:58] LABS: CALCIUM 10.1 MG/DL (8.5-10.1)
[2023-07-30 02:59] LABS: TOTAL PROTEIN 7.1 GM/DL (6.4-8.2)
[2023-07-30 03:01] LABS: BILIRUBIN,TOTAL 0.5 MG/DL (0.1-1.0)
[2023-07-30 03:03] LABS: CREATININE SERUM 0.86 MG/DL (0.60-1.30)
[2023-07-30] MEDS ORDERED: morphine INJ 4 MG/ML 1 ML (VIAL/SYRINGE) IVP ONE (03:45)
[2023-07-30 04:11] LABS: COLOR,URINE YELLOW
[2023-07-30 04:12] LABS: BILIRUBIN,URINE NEGATIVE (NEGATIVE); CLARITY,URINE CLEAR; GLUCOSE, URINE (UA) NEGATIVE (NEGATIVE); KETONES,URINE NEGATIVE (NEGATIVE); LEUKOCYTE ESTERASE ,URINE NEGATIVE (NEGATIVE); NITRITE,URINE NEGATIVE (NEGATIVE); PROTEIN,URINE NEGATIVE (NEGATIVE)
[2023-07-30] MEDS ORDERED: IOHEXOL 350 MG/ML 100 ML (OMNIPAQUE 350) VIAL IV ONE (04:15)
[2023-07-30] MEDS ORDERED: NS 100 ML (IVPB) BAG IV ONE (04:15)
[2023-07-30] MEDS ORDERED: HOLD METFORMIN - RECEIVED CONTRAST 20 ML VIAL IV SCH (04:15)
[2023-07-30 04:17] LABS: BACTERIA,URINE TRACE /HPF; RBC,URINE RARE /HPF; SQUAMOUS EPITHELIAL CELL,UR 0-2 /HPF
[2023-07-30] MEDS ORDERED: morphine INJ 10 MG/ML 1ML (SYR OR VIAL) IVP STA (05:04)
[2023-07-30] MEDS ORDERED: HYOSCYAMINE 0.125 MG TABLET SL ONE (05:45)
[2023-07-30] MEDS ORDERED: ENOXAPARIN 100 MG/1 ML SYRINGE SC ONE (05:45)
[2023-07-30] MEDS ORDERED: morphine INJ 10 MG/ML 1ML (SYR OR VIAL) IV PRN (06:30)
[2023-07-30] MEDS ORDERED: HYOSCYAMINE 0.125 MG TABLET SL PRN (06:30)
[2023-07-30] MEDS: PANTOPRAZOLE INJECTION 40 MG VIAL IV SCH (06:45)
[2023-07-30] MEDS: LACTATED RINGERS 1,000 ML 1,000 ML IV SCH ×4 (06:45→23:18)
--- NOTE | 2023-07-30 07:42 | Diagnostic Imaging Report ---
PROCEDURE: CT angiography of the chest with contrast and CT abdomen and pelvis with contrast. TECHNIQUE: Multiple contiguous axial images were obtained through the chest, abdomen and pelvis after administration of intravenous contrast. 3D MIP reconstructed CT angiography acquisitions of the aorta were then performed. Auto Exposure Controls were utilized during the CT exam to meet ALARA standards for radiation dose reduction. Date: July 30, 2023. Indication: 72-year-old female, chest and upper abdominal pain. Comparison: None. Findings: There are linear opacities in the right lower lobe likely relating to scarring and/or atelectasis. There is a calcified right lower lobe granuloma. There is some respiratory motion artifact. There is mild atelectasis and/or scarring in the lingula and left lower lobe. There is no pneumothorax. There is no pleural effusion. The central airways are patent. There are limitations for evaluation of pulmonary emboli given timing of the contrast bolus and motion artifact. There is nondiagnostic evaluation of the segmental and subsegmental pulmonary artery branches. There is a potential thrombus at the right pulmonary artery bifurcation extending into the right lower lobe segmental branches. The heart is not enlarged. There is no identified pericardial effusion. There are atherosclerotic calcifications. There are calcified right hilar and subcarinal lymph nodes as well as peritracheal lymph nodes consistent with sequela of prior granulomatous disease. There is no abnormally enlarged noncalcified mediastinal, hilar, or axillary lymph node which meets CT size criteria for adenopathy. The liver is unremarkable in size and contour. There is no identified liver lesion. The gallbladder is unremarkable. There is no biliary ductal dilation. Unremarkable appearance of the pancreas. The spleen is normal in size. The adrenal glands are unremarkable. Unremarkable appearance of the renal parenchyma. The urinary collecting systems are not distended. There is no identified renal or ureteral stone. Urinary bladder is underdistended and grossly unremarkable in appearance. There are mildly distended segments of small bowel without clearly identified transition point. The appendix is unremarkable. There is a very small amount of free pelvic fluid. There is no drainable fluid collection. There is no free intraperitoneal air. There is no identified abnormally enlarged lymph node in the abdomen or pelvis which meets CT size criteria for adenopathy. There are multilevel degenerative changes of the spine. There is no identified acute bony abnormality. Impression: 1. There are substantial limitations for evaluation of pulmonary embolus; however, there is likely a pulmonary embolus in the right pulmonary artery extending in the right lower lobe pulmonary artery branches. Normal in caliber of the main pancreatic duct. 2. Mildly distended segments of small bowel without identified transition point. Ileus or partial obstruction are considered. 3. Small amount of free pelvic fluid. Agree with the provided preliminary report. Dictated by: Dictated on workstation # [id number]
[2023-07-30] MEDS: ONDANSETRON INJECTION 4 MG/2 ML (SDV) IV PRN ×2 (09:06→13:51)
--- NOTE | 2023-07-30 11:09 | History & Physical-Hospitalist ---
CAESAR WALKER 07/30/23 1109: History of Present Illness HPI/Chief Complaint Pt is a 72 y/o female who came into the ER today with epigastric pain and nausea that started around 8 PM last night. Denies vomiting or constipation. Denies fever, CP, or SOB. She describes the pain as a wave of cramping/achy pain that goes from her epigastric region down her abdomen into her pelvis. She has not tried anything to make it better. Was given morphine in the ER which helped her sxs. She states that she was started on Rybelsus on 07/15 and wonders if it is contributing to her sxs. She reports 1 episode of vomiting up some chicken broth today right after taking her morphine dose. Source: patient Exam Limitations: no limitations Date Seen 07/30/23 Time Seen by a Provider: 11:06 Attending Physician Yon Hall MD PCP Admitting Physician: Dominic Streeter MD Attending Physician: Dominic Streeter MD Referring Physician Date of Admission Jul 30, 2023 at 05:54 Home Medications & Allergies Home Medications Reviewed patient Home Medication Reconciliation performed by pharmacy medication reconciliations mechanic sound technician and/or nursing. Patients Allergies have been reviewed. Allergies Allergies Coded Allergies nickel (Unverified Allergy, Mild, 02/25/09) Penicillins (Verified Allergy, Unknown, 01/01/16) Sulfa (Sulfonamide Antibiotics) (Verified Allergy, Unknown, 01/01/16) Uncoded Allergies METAL ( Allergy, Mild, 02/25/09) Past Tfhkwcj-Gzxqiu-Wlnbfi Hx Patient Social History Tobacco Use?: No Smoking Status: Former Smoker (quit 2016) Use of E-Cig and/or Vaping dev: No Substance use?: No Substance frequency: Once in a while Alcohol Use?: Yes Alcohol type: Hard Liquor Additional alcohol type: SCOTCH Alcohol Frequency: Several times a month Pt feels they are or have been: No Immunizations Up To Date Date of Influenza Vaccine: Jun 22, 2023 Tetanus Booster (TDap): Unknown Seasonal Allergies Seasonal Allergies: No Current Status status: No status: No Advance Directives: No Communicates: Verbally Primary Language: Turkmen Preferred Spoken Language: Turkmen Is interpretation needed?: No Implanted or Applied Medical D: None Past Medical History Surgeries: Eye Surgery Hypertension UTI-Chronic Hemorrhoids Chronic Back Pain Diabetes, Non-Insulin dep Cataract Loss of Vision: Denies Hearing Impairment: Denies Blood Disorders: No Family Medical History No Pertinent Family Hx Review of Systems Constitutional: No chills, No fever EENTM: No vision loss, No hoarseness Respiratory: No cough, No dyspnea on exertion, No hemoptysis, No phlegm, No short of breath Cardiovascular: No chest pain, No palpitations Gastrointestinal: abdominal pain; No constipation, No diarrhea, No heartburn; nausea Genitourinary: No decreased output, No discharge Musculoskeletal: back pain; No muscle pain Skin: No change in color, No dryness, No rash Psychiatric/Neurological: Denies Headache, Denies Tremors, Denies Weakness Physical Exam Physical Exam Vital Signs Vital Signs - First Documented 07/30/23 07/30/23 07/30/23 02:13 06:23 08:43 Temp 36.4 Pulse 89 Resp 16 B/P (MAP) 187/113 (137) Pulse Ox 94 O2 Delivery Room Air Capillary Refill : Less Than 3 Seconds Height, Weight, BMI Height: 5'6" Weight: 250lbs. oz. 113.254527kr; 40.96 BMI Method:Stated General Appearance: No Apparent Distress, Obese Eyes: Bilateral Eye Normal Inspection, Bilateral Eye PERRL HEENT: PERRL/EOMI, Normal ENT Inspection Neck: Full Range of Motion, Normal Inspection, Supple Respiratory: Chest Non Tender, Lungs Clear, Normal Breath Sounds, No Accessory Muscle Use, No Respiratory Distress Cardiovascular: Regular Rate, Rhythm, No JVD, No Murmur, Normal Peripheral Pulses Gastrointestinal: Soft; No Distended, No Guarding; Tenderness (epigastrium) Extremity: Normal Capillary Refill, Normal Inspection, Non Tender, No Calf Tenderness Neurologic/Psychiatric: Alert, Oriented x3, No Motor/Sensory Deficits, Normal Mood/Affect Skin: Normal Color, Warm/Dry Lymphatic: No Adenopathy Results Results/Procedures Labs Laboratory Tests 07/30/23 02:44 Patient resulted labs reviewed. Assessment/Plan Admission Diagnosis Ileus/SBO, PE Admission Status: Inpatient Order (span 2 midnights) Reason for Inpatient Admission: Ileus/SBO, PE Assessment and Plan Ileus vs. SBO - NPO - Morphine 5 mg IV q2 hrs PRN - Zofran 4 mg - Protonix 40 mg IV/d - General surgery consulted, appreciate recommendations PE - Enoxaparin 100 mg SQ q12 hrs - PT/OT referral HTN - Hydralazine 5 mg IV Diabetes - Hold metformin d/t contrast - Sliding scale insulin JOSE OVALLE MD 07/30/23 1429: Results Results/Procedures Imaging: Reviewed Imaging Report Assessment/Plan Assessment and Plan Admitted to the hospital secondary to abdominal pain with either ileus or small bowel obstruction. She has not had any flatus or bowel movement today but her pain has improved. Surgery has been consulted. She did vomit 1 time this morning though associates it with morphine administration. She was incidentally found to have pulmonary embolism and has been started on Lovenox. I will continue Lovenox until she has no further vomiting. I called and updated Dr. Hall. Diagnosis/Problems Diagnosis/Problems (1) Diabetes (2) Hypertension (3) Small bowel obstruction Status: Acute (4) Pulmonary embolism Status: Acute Qualifiers: Pulmonary embolism type: unspecified Chronicity: acute Acute cor pulmo nale presence: without acute cor pulmonale Qualified Codes: I26.99 - Other pulmonary embolism without acute cor pulmonale (5) Enteritis Status: Acute Supervisory-Addendum Brief Verification & Attestation Participated in pt care: history, MDM, physical Personally performed: exam, history, MDM, supervision of care Care discussed with: Medical Student Procedures: n/a Results interpretation: Verified all documentation Verification and Attestation of Medical Student E/M Service A medical student performed and documented this service in my presence. I reviewed and verified all information documented by the medical student and made modifications to such information, when appropriate. I personally performed the physical exam and medical decision making. Jose Ovalle, Jul 30, 2023,14:24 CAESAR WALKER Jul 30, 2023 11:09 JOSE OVALLE MD Jul 30, 2023 14:29
[2023-07-30] MEDS: hydrALAZINE INJECTION 20 MG/ML VIAL IV PRN ×2 (12:16→23:18)
[2023-07-30] MEDS ORDERED: VIT1CAPS4 PO (12:29)
[2023-07-30] MEDS ORDERED: LISI40TA9 PO (12:29)
[2023-07-30] MEDS ORDERED: HYDROcodone/ACETAMINOPHEN 7.5 MG/325 MG TABLET PO PRN (15:15)
--- NOTE | 2023-07-30 16:40 | CONSULTATION REPORT ---
DATE OF SERVICE: 07/30/2023 ATTENDING PRIMARY CARE PHYSICIAN: Dr. Yon Hall. ADMITTING PHYSICIAN: Dr. Streeter. HISTORY OF PRESENT ILLNESS: The patient is a 72-year-old female who presented early this morning with epigastric pain. She does not report any nausea, no vomiting. She also does have a history of mild constipation, however, states that she does have bowel movements on a daily basis, which has not changed. She was recently started on semaglutide, which may be causing her to develop a gastroparesis. A CT scan was performed, which did show a right pulmonary embolism, however, some mildly dilated loops of small bowel, likely consistent with an ileus. She is currently on anticoagulation with therapeutic Lovenox injections. She is tolerating clear liquids without any difficulty. PAST MEDICAL HISTORY: Degenerative joint disease, hypertension, diabetes. PAST SURGICAL HISTORY: Eye surgery. ALLERGIES: NICKEL, PENICILLIN, SULFA. MEDICATIONS: Cefdinir 300 mg b.i.d., enalapril 20 mg daily, gabapentin 300 mg t.i.d. p.r.n., glipizide 10 mg daily, metformin 500 mg b.i.d., Nebivolol 5 mg daily, tramadol 50 mg q.6 hours p.r.n. SOCIAL HISTORY: Negative smoke, negative alcohol. FAMILY HISTORY: Noncontributory. VITAL SIGNS: Temperature 36.4, blood pressure 165/82, pulse 74, respirations 18, pulse ox 97% on room air. REVIEW OF SYSTEMS: Well-nourished female, currently in no acute distress. She is not experiencing any shortness of breath or difficulty breathing. No chest pain, palpitations, diaphoresis. Has had some pain in the epigastric region as well as a right upper abdominal quadrant, which was described as sharp in nature. No diarrhea, no red blood per rectum, no dark tarry stools. No hematemesis, no coffee-ground emesis. No fever, chills, no recent inadvertent weight loss. All other review of systems negative. PHYSICAL EXAMINATION: CHEST: Few scattered rales bilaterally. HEART: Regular. No murmurs. EXTREMITIES: No lower extremity edema. Negative Homans sign. HEENT: No scleral icterus. No cervical lymphadenopathy. ABDOMEN: Soft, mildly distended, no palpable hernias. SKIN: Warm, dry. LABORATORY DATA: WBC 13.0, hemoglobin 13.8, hematocrit 42, platelets 232, BUN 21, creatinine 0.86. ASSESSMENT AND PLAN: A 72-year-old female with crampy abdominal pain as well as some mildly dilated loops of small bowel, which is likely an ileus and her symptomatology may be caused by the addition of semaglutide, which does induce a gastroparesis. 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 There is also a potential component of her gallbladder being contributing to her symptomatology and on this admission, we will also proceed with gallbladder ultrasound as well as a HIDA scan if necessary. Job ID: [id number] DocumentID: [id number] Dictated Date: 07/30/2023 16:09:21 Woolen Tester Date: 07/30/2023 16:38:00 Dictated By: NIC HOOD MD
[2023-07-30] MEDS: metroNIDAZOLE 500MG/100ML IVPB 100 ML IV SCH (17:28)
[2023-07-30] MEDS: ENOXAPARIN 100 MG/1 ML SYRINGE SC SCH (17:30)
[2023-07-30] MEDS: CIPROFLOXACIN IV 400MG/200ML 200 ML IV SCH (18:33)
[2023-07-31 03:46] VITALS: BP 151/73
[2023-07-31] MEDS: metroNIDAZOLE 500MG/100ML IVPB 100 ML IV SCH (05:30)
[2023-07-31] MEDS: ENOXAPARIN 100 MG/1 ML SYRINGE SC SCH (05:31)
[2023-07-31] MEDS: CIPROFLOXACIN IV 400MG/200ML 200 ML IV SCH (06:36)
[2023-07-31 07:57] LABS: HEMATOCRIT 44 % (35-52); HEMOGLOBIN 14.2 g/dL (11.5-16.0); MEAN CORPUSCULAR HEMOGLOBIN 29 pg (25-34); MEAN CORPUSCULAR HGB CONC 33 g/dL (32-36); MEAN CORPUSCULAR VOLUME 89 fL (80-99); MEAN PLATELET VOLUME 10.5 fL (9.0-12.2); PLATELET COUNT 258 10^3/uL (130-400); WHITE BLOOD COUNT 10.8 10^3/uL (4.3-11.0)
[2023-07-31 08:00] VITALS: BP 142/75
[2023-07-31 08:20] LABS: CALCIUM 10.6 MG/DL (8.5-10.1); CREATININE SERUM 0.98 MG/DL (0.60-1.30); POTASSIUM 3.7 MMOL/L (3.6-5.0)
[2023-07-31] MEDS: PANTOPRAZOLE INJECTION 40 MG VIAL IV SCH (08:25)
--- NOTE | 2023-07-31 08:55 | Diagnostic Imaging Report ---
PROCEDURE: US Abdomen, limited. TECHNIQUE: Multiple realtime grayscale images were obtained over the abdomen in various projections. INDICATION: Right upper quadrant pain. Liver is mildly enlarged at 18.3 cm. The portal vein is patent and shows normal direction of flow. There is some increased echogenicity throughout the liver consistent with hepatic steatosis. No liver mass is identified. Gallbladder is without stones or sludge. No wall thickening or biliary duct dilatation is identified. Pancreas is unremarkable. Aorta and IVC are unremarkable. There is an approximately 2 cm hypoechogenicity in the mid right kidney suggestive of a cyst. There is no ascites. IMPRESSION: 1. Mild hepatomegaly and hepatic steatosis. 2. No evidence of cholelithiasis or acute cholecystitis. 3. A 2 cm right renal cyst. Dictated by: Dictated on workstation # [id number]
[2023-07-31] MEDS: LACTATED RINGERS 1,000 ML 1,000 ML IV SCH (09:10)
--- NOTE | 2023-07-31 10:26 | Discharge Summary ---
CAESAR WALKER 07/31/23 1026: Diagnosis/Chief Complaint Date of Admission Jul 30, 2023 at 05:54 Date of Discharge 07/31/2023 Discharge Date: Jul 31, 2023 Discharge Time: 10:21 Admission Diagnosis SBO/Ileus, PE, enteritis Primary Care Yon Hall MD Discharge Diagnosis Ileus, PE, enteritis (1) Diabetes (2) Hypertension (3) Small bowel obstruction Status: Acute (4) Pulmonary embolism Status: Acute (5) Enteritis Status: Acute Discharge Summary Discharge Physical Exam Allergies: Coded Allergies: nickel (Unverified Allergy, Mild, 02/25/09) Penicillins (Verified Allergy, Unknown, 01/01/16) Sulfa (Sulfonamide Antibiotics) (Verified Allergy, Unknown, 01/01/16) thimerosal (Verified Allergy, Unknown, 07/30/23) Uncoded Allergies: METAL (Allergy, Mild, 02/25/09) Vitals & I&Os Vital Signs Date Time Temp Pulse Resp B/P (MAP) Pulse Ox O2 Delivery O2 Flow Rate FiO2 07/31/23 08:00 36.4 72 16 142/75 (97) 96 Room Air General Appearance: No Apparent Distress, Obese HEENT: PERRL/EOMI, Normal ENT Inspection Respiratory: Chest Non Tender, Lungs Clear, Normal Breath Sounds, No Accessory Muscle Use, No Respiratory Distress Cardiovascular: Regular Rate, Rhythm, No Gallop, No JVD, No Murmur, Normal Peripheral Pulses Gastrointestinal: Normal Bowel Sounds, Soft, Tenderness (mild epigastric) Extremity: Normal Capillary Refill, Normal Inspection, Non Tender, No Calf Tenderness, No Pedal Edema Skin: Normal Color, Warm/Dry Neurologic/Psychiatric: Alert, Oriented x3, No Motor/Sensory Deficits, Normal Mood/Affect Hospital Course Was the Problem List Reviewed?: Yes Pt is a 72 y/o female who came into the ER 07/30 with epigastric pain and nausea. Denies fever, CP, or SOB. She described the pain as a wave of intense crampy/sharp pain that went from her epigastric region down her abdomen into her pelvis. Was started on Rybelsus on 07/15 and wonders if this slowed down her GI tract. Denies significant constipation. While in ER, CTA chest revealed PE as well and was given enoxaparin 100 SQ, converted to Eliquis 10 mg PO BID. Given morphine for pain control. Today, pt denies a BM but did have flatus. Reports an episode of vomiting after her lunch yesterday. Abd US today showed no gallstones or evidence of cholelithiasis. Will DC with oral anticoagulation. Labs (last 24 hrs) Laboratory Tests 07/31/23 07:45: White Blood Count 10.8, Red Blood Count 4.90, Hemoglobin 14.2, Hematocrit 44, Mean Corpuscular Volume 89, Mean Corpuscular Hemoglobin 29, Mean Corpuscular Hemoglobin Concent 33, Red Cell Distribution Width 12.8, Platelet Count 258, Mean Platelet Volume 10.5, Sodium Level 140, Potassium Level 3.7, Chloride Level 103, Carbon Dioxide Level 24, Anion Gap 13, Blood Urea Nitrogen 9, Creatinine 0.98, Estimat Glomerular Filtration Rate 61, BUN/Creatinine Ratio 9, Glucose Level 228H, Calcium Level 10.6H Patient resulted labs reviewed. Pending Labs Laboratory Tests 07/31/23 07:45: White Blood Count 10.8, Red Blood Count 4.90, Hemoglobin 14.2, Hematocrit 44, Mean Corpuscular Volume 89, Mean Corpuscular Hemoglobin 29, Mean Corpuscular Hemoglobin Concent 33, Red Cell Distribution Width 12.8, Platelet Count 258, Mean Platelet Volume 10.5, Sodium Level 140, Potassium Level 3.7, Chloride Level 103, Carbon Dioxide Level 24, Anion Gap 13, Blood Urea Nitrogen 9, Creatinine 0.98, Estimat Glomerular Filtration Rate 61, BUN/Creatinine Ratio 9, Glucose Level 228, Calcium Level 10.6 Imaging: Reviewed Imaging Report Discharge Home Medications: Active Scripts Active Reported Tart Can Capsule (Vit C/Can & Celery Ex/Grp E) 30 Mg-250 Mg-75 Mg-75 Mg-20 Mg Capsule 2 Each PO HS Lisinopril 40 Mg Tablet 40 Mg PO DAILY Glipizide 10 Mg Tablet 10 Mg PO DAILY Metformin HCl 500 Mg Tablet 500 Mg PO DAILY Instructions to patient/family Please see electronic discharge instructions given to patient. JOSE OVALLE MD 07/31/232045: Discharge Summary Discharge Physical Exam Allergies: Coded Allergies: nickel (Unverified Allergy, Mild, 02/25/09) Penicillins (Verified Allergy, Unknown, 01/01/16) Sulfa (Sulfonamide Antibiotics) (Verified Allergy, Unknown, 01/01/16) thimerosal (Verified Allergy, Unknown, 07/30/23) Uncoded Allergies: METAL (Allergy, Mild, 02/25/09) Hospital Course Patient admited with ileus and pulmonary embolism. She was seen in consultation by Surgery and ileus was felt to likely be associated with Rybelus. Abs usg was done to evaluate for underlying gallbladder pathology and showed no gallstones or cholecystitis. She was passing gas and tolerating a diet so was transitioned back to her home meds. She was treated with Lovenox here and sent Eliquis upon DC. Pharmacy was consulted for anticoagulation education prior to DC. She was discharged home in stable and improved condition at her request to follow up with Dr Hall and Dr Meraz. Discussion & Recommendations Discharge Planning: >30 minutes discharge planning Supervisory-Addendum Brief Verification & Attestation Participated in pt care: history, MDM, physical Personally performed: exam, history, MDM, supervision of care Care discussed with: Medical Student Procedures: n/a Results interpretation: Verified all documentation Verification and Attestation of Medical Student E/M Service A medical student performed and documented this service in my presence. I reviewed and verified all information documented by the medical student and made modifications to such information, when appropriate. I personally performed the physical exam and medical decision making. Jose Ovalle, Jul 31, 2023,20:46 Problem Qualifiers (1) Pulmonary embolism: Pulmonary embolism type: unspecified Chronicity: acute Acute cor pulmonale presence: without acute cor pulmonale Qualified Codes: I26.99 - Other pulmonary embolism without acute cor pulmonale CAESAR WALKER Jul 31, 2023 10:26 JOSE OVALLE MD Jul 31, 2023 20:46
[2023-07-31] MEDS ORDERED: glipiZIDE 5 MG TABLET PO SCH (10:47)
[2023-07-31] MEDS ORDERED: inSUlin ASPART 1 UNIT/0.01 ML (PER UNIT) SC SCH (11:00)
[2023-07-31] MEDS ORDERED: APIX5TAB PO ×2 (11:31→12:28)
--- NOTE | 2023-07-31 11:40 | Discharge Inst-Simple/Standard ---
Discharge Inst-Standard Discharge Medications New, Converted or Re-Newed RX: Transmitted to Pharmacy Patient Instructions/Follow Up Plan of Care/Instructions/FU: Please continue to take your medications as written. Please follow up with your primary care doctor to follow up this hospital stay. Activity as Tolerated: Yes Discharge Diet: No Restrictions Return to The Hospital For: Chest pain, shortness of breath, fever, weakness, if you feel you are getting worse. JOSE BISHOP MD Jul 31, 2023 11:40
[2023-07-31 11:47] VITALS: BP 134/79
--- NOTE | 2023-07-31 13:09 | Progress Note ---
Subjective Date Seen by a Provider: Jul 31, 2023 Time Seen by a Provider: 12:00 Subjective/Events-last exam doing much better. less abd pain. u/s no stones/sludge. hx of dysphagia. tolerating reg diet. Objective Exam Vital Signs Date Time Temp Pulse Resp B/P (MAP) Pulse Ox O2 Delivery O2 Flow Rate FiO2 07/31/23 11:47 36.4 84 16 134/79 (97) 94 Room Air 07/31/23 08:29 Room Air 07/31/23 08:00 36.4 72 16 142/75 (97) 96 Room Air 07/31/23 03:46 36.2 75 16 151/73 (99) 96 Room Air 07/30/23 23:14 36.3 68 20 182/90 (120) 97 Room Air 07/30/23 19:40 Room Air 07/30/23 19:40 36.5 73 18 176/78 (110) 96 Room Air 07/30/23 15:57 36.4 74 18 165/82 (109) 97 Room Air I & O 07/31/23 06:59 Intake Total 3190 ml Output Total 2750 ml Balance 440 ml Capillary Refill : Less Than 3 Seconds General Appearance: No Apparent Distress HEENT: PERRL/EOMI Neck: Full Range of Motion Respiratory: Chest Non Tender, Lungs Clear, Normal Breath Sounds Cardiovascular: Regular Rate, Rhythm Gastrointestinal: normal bowel sounds, soft, tenderness Extremity: Normal Capillary Refill Neurologic/Psychiatric: Alert, Oriented x3 Skin: Normal Color Lymphatic: No Adenopathy Results Lab Laboratory Tests 07/31/23 07:45: White Blood Count 10.8, Red Blood Count 4.90, Hemoglobin 14.2, Hematocrit 44, Mean Corpuscular Volume 89, Mean Corpuscular Hemoglobin 29, Mean Corpuscular Hemoglobin Concent 33, Red Cell Distribution Width 12.8, Platelet Count 258, Mean Platelet Volume 10.5, Sodium Level 140, Potassium Level 3.7, Chloride Level 103, Carbon Dioxide Level 24, Anion Gap 13, Blood Urea Nitrogen 9, Creatinine 0.98, Estimat Glomerular Filtration Rate 61, BUN/Creatinine Ratio 9, Glucose Level 228H, Calcium Level 10.6H 07/31/23 10:25: Glucometer 207H Assessment/Plan Assessment/Plan Assess & Plan/Chief Complaint nausea/vomiting, dysphagia, enteritis, right subclinical pulmonary emobolus. cont PPI. has never had a full colonoscopy up to this point in her life. possible biliary dyskinesia. cont OAC 3 mo. will have pt f/u 6 weeks and then plan for OP EGD, colonoscopy, possible HIDA. NIC HOOD MD Jul 31, 2023 13:09
[2023-07-31 14:00] VITALS: BP 134/79
[2023-07-31] MEDS ORDERED: APIXABAN 5 MG TABLET PO SCH (21:00)
== END 2023-07-31 12:57 | disposition home or self-care (01) ==
LOC: EDUNIT# 01:53 → ER 01:56 → 4TH 05:54 → UNDOADMOB 05:54 → 4TH 06:08 → UNDODISOB 07-31 12:57
PROVIDERS: ADMIT Internal Medicine; ATTEND Internal Medicine
DX: K56.699 Other intestinal obstruction unspecified as to partial versus complete obstruction (principal); I26.99 Other pulmonary embolism without acute cor pulmonale; K52.9 Noninfective gastroenteritis and colitis, unspecified; E11.9 Type 2 diabetes mellitus without complications; I10 Essential (primary) hypertension; K59.00 Constipation, unspecified; Z87.891 Personal history of nicotine dependence; Z79.899 Other long term (current) drug therapy; Z79.84 Long term (current) use of oral hypoglycemic drugs
CPT/HCPCS: 71275; 74174; 76705; 80048; 80053; 81000; 82947; 83690; 85025; 85027; 86141; 96366; 96372 ×3; 96374; 96375 ×2; 96376 ×3; 99284; G0378; 36415